=== PATIENT | female | born 1980 | race African-American/Black ===

== ENCOUNTER 2017-04-30 07:24 | Emergency (ER) | payer OTHER ==
[~2017-04-30] VITALS: Ht 167.6 cm; Wt 95.2 kg
--- NOTE | ~2017-04-30 | CR229 ---
[facility] A Service of [facility] & [facility] RADIOLOGY TEXT RESULTS PATIENT: BRUNO SOLANO LOCATION: [facility] : 84 UNIT #: [id number] AGE: [address]: Mey Andrews APRN SEX: F ORDER DR: [id number] [facility] [address] [place], [place] [address] [id number] E MR#: [id number] Acc #: [id number] NAME: BRUNO SOLANO : 1980 SEX: F STUDY DATE/TIME: 04/30/2017 8:04 UNIT: [facility] ROOM: STUDY DESCRIPTION: CR Shoulder Min 2 View Lt Attending Physician: Mey Andrews A.P.R.N. Ordering Physician: Ed Jonas Houser M.D. Primary Care Physician: Chris Pendleton M.D. MEDICAL IMAGING REPORT This report is preliminary unless electronic signature is present EXAM Left shoulder HISTORY Pain in the left shoulder with no known injury. Pain started today. FINDINGS AP view with internal and external rotation of the shoulder girdle shows satisfactory relationship of the humeral head and glenoid fossa. The joint space is normal. There is no identifiable fracture or dislocation or bony destructive process about the shoulder girdle anatomy. The acromioclavicular joint is normal. There is no radiopaque foreign body in the region. IMPRESSION Normal shoulder. Dictated by... Cody Reddy M.D. THIS IS AN ELECTRONICALLY VERIFIED REPORT Cody Reddy M.D. at 04/30/2017 3:24 PM ALIYA/anthony TD: 04/30/2017 12:35 JOB #: [id number] MEDICAL IMAGING REPORT Page 1 of 1 COPY
== END 2017-04-30 08:52 | disposition home or self-care (01) ==
LOC: CED 07:24
DX: S43.52XA Sprain of left acromioclavicular joint, initial encounter (principal); I10 Essential (primary) hypertension; F17.200 Nicotine dependence, unspecified, uncomplicated; X50.9XXA Other and unspecified overexertion or strenuous movements or postures, initial encounter; Y92.009 Unspecified place in unspecified non-institutional (private) residence as the place of occurrence of the external cause
CPT/HCPCS: 73030; 99283; J1885